=== PATIENT | female | born 1975 | race American Indian/Alaskan Native ===

== ENCOUNTER 2020-12-10 06:32 | Emergency (ER) | payer OTHER ==
[2020-12-10] MEDS ORDERED: PROCHLORPERAZINE MALEATE 10 MG TAB PO NR (07:40)
[2020-12-10] MEDS ORDERED: BUTALB/ACETAMINOPHEN/CAFFEINE TAB PO ONE (07:40)
--- NOTE | 2020-12-10 07:40 | Emergency Department Report ---
ED Headache HPI - General Chief Complaint: Headache Stated Complaint: MIGRAINE Time Seen by Provider: 12/10/20 07:31 Source: patient - History of Present Illness Initial Comments: 45-year-old female with a past medical history of migraines presents to the ER today complaint of right sided headache. Reports that her headache started vertical about a week ago it was initially intermittent but for the past 3 days has been constant. She states that the last time she had a migraine flare was about 2 years ago. She states that headache this past week feels similar to her previous migraines just more intense. Reports mild nausea and some blurry vision and mild tightness to the right posterior neck and right jaw. States that the headache is worse with light and noise. She is unable to say what mikaela es it better. She states that she has tried [id number] Excedrin which typically helps her migraine but it has not helped in the past 3 days. He has also tried Tylenol ibuprofen without much relief of her headache. Denies any head injury. She reports no URI symptoms, fever, chills, focal weakness, numbness, tingling or any other symptoms at this time. Timing/Duration: 1 week Allergies/Adverse Reactions: Allergies latex Allergy (Verified 12/10/20 07:09) Hives Home Medications: Ambulatory Orders Butalb/Acetamin/Caff 50-325-40 [Fioricet 50-325-40] 1 tab PO Q6HR PRN #12 tablet 12/10/20 Promethazine [Phenergan] 25 mg PO Q6HR PRN #15 tab 12/10/20 ED Review of Systems ROS: Stated complaint: MIGRAINE Other details as noted in HPI Comment: All other systems reviewed and negative Constitutional: denies: chills, fever Eyes: denies: eye pain, eye discharge, vision change ENT: denies: ear pain, throat pain Respiratory: denies: cough, shortness of breath, wheezing Cardiovascular: denies: chest pain, palpitations Endocrine: no symptoms reported Gastrointestinal: denies: abdominal pain, nausea, diarrhea Musculoskeletal: other (right sided neck tightness) Neurological: headache. denies: weakness, numbness, paresthesias, confusion Psychiatric: denies: anxiety, depression ED Past Medical Hx - Past Medical History Previous Medical History?: Yes Hx Headaches / Migraines: Yes - Surgical History Past Surgical History?: Yes Additional Surgical History: lipoma removal from rigth side - Medications Home Medications: Home Medications Medication Instructions Recorded Confirmed Last Taken Type Butalb/Acetamin/Caff 50-325-40 1 tab PO Q6HR PRN #12 tablet 12/10/20 Unknown Rx [Fioricet 50-325-40] Promethazine [Phenergan] 25 mg PO Q6HR PRN #15 tab 12/10/20 Unknown Rx ED Physical Exam - General Limitations: No Limitations General appearance: alert, in no apparent distress - Head Head exam: Present: atraumatic, normocephalic, normal inspection - Eye Eye exam: Present: normal appearance, PERRL, EOMI Pupils: Present: normal accommodation - ENT ENT exam: Present: normal exam, normal orophraynx, mucous membranes moist - Neck Neck exam: Present: normal inspection, tenderness (Mild right trapezius/paraspinal muscle ttp. no midline ttp. Full RoM of neck without any limitation or pain. No meningeal signs), full ROM - Respiratory Respiratory exam: Present: normal lung sounds bilaterally. Absent: respiratory distress - Cardiovascular Cardiovascular Exam: Present: regular rate, normal rhythm - GI/Abdominal GI/Abdominal exam: Present: soft. Absent: distended, tenderness - Neurological Exam Neurological exam: Present: alert, oriented X3, CN II-XII intact, normal gait - Psychiatric Psychiatric exam: Present: normal mood - Skin Skin exam: Present: intact ED Course Vital Signs 12/10/20 12/10/20 12/10/20 07:09 08:12 08:26 Temperature 98.9 F Pulse Rate 79 68 Respiratory 18 17 16 Rate Blood Pressure 137/74 134/57 [Left] O2 Sat by Pulse 100 100 Oximetry ED Medical Decision Making - Medical Decision Making The patient presented to the emergency department with a headache. The patient is resting comfortably and, is alert, talkative, interactive and in no distress. The patient appears well, not toxic and well hydrated. The examination is unremarkable and benign. The patient is neurologically intact, has a normal mental status, and is ambulatory in the ER. The history, exam, and the patient's current condition does not suggest meningitis, stroke, sepsis, subarachnoid hemorrhage, intracranial bleeding, encephalitis, temporal arteritis or other significant pathology to warrant further testing, continued ED treatment, admission, neurological consultation or other specialist evaluation at this point. The vital signs have been stable. The patient's condition is stable and appropriate for discharge. The patient will pursue further outpatient evaluation with the primary care physician or other designated or consulting physician as indicated in the discharge instruction. Critical care attestation.: If time is entered above; I have spent that time in minutes in the direct care of this critically ill patient, excluding procedure time. ED Disposition Clinical Impression: Migraine Disposition: DC- TO HOME OR SELFCARE Is pt being admited?: No Does the pt Need Aspirin: No Condition: Stable Instructions: Migraine Headache, Hebo-vo-Kuty Additional Instructions: Take the medications as prescribed. Follow up with PCP listed on your D/C instructions. REturn to ED if symptoms changes or worsens. Prescriptions: Butalb/Acetamin/Caff 50-325-40 [Fioricet 50-325-40] 1 tab PO Q6HR PRN #12 tablet PRN Reason: Headache Promethazine [Phenergan] 25 mg PO Q6HR PRN #15 tab PRN Reason: Nausea Referrals: ALISON SNELL MD [Staff Physician] - 3-5 Days Forms: Work/School Release Form(ED) Time of Disposition: 07:43
[2020-12-10] MEDS ORDERED: PROMETHAZINE 25 MG TAB PO ONE (07:44)
[2020-12-10 08:27] VITALS: BP 134/57
== END 2020-12-10 08:27 | disposition home or self-care (01) ==
LOC: ED 06:32
DX: G43.909 Migraine, unspecified, not intractable, without status migrainosus (principal); Z79.899 Other long term (current) drug therapy; Z88.8 Allergy status to other drugs, medicaments and biological substances
CPT/HCPCS: 99282; Q0164; Q0169

== ENCOUNTER 2021-10-10 12:57 | Outpatient (CLI) | payer BC ==
--- NOTE | 2021-10-10 14:00 | XRay Report ---
RIGHT KNEE 3 VIEW(S) INDICATION / CLINICAL INFORMATION: PAIN IN RIGHT KNEE COMPARISON: None available. FINDINGS: BONES / JOINT(S): No acute fracture or subluxation. No significant arthritis. SOFT TISSUES: No significant abnormality. ADDITIONAL FINDINGS: None. Signer Name: Shayne Adler MD Signed: 10/10/2021 1:55 PM Workstation Name: [id number]
--- NOTE | 2021-10-10 14:20 | XRay Report ---
LUMBOSACRAL SPINE 3 VIEWS INDICATION: BACK PAIN. COMPARISON: None. IMPRESSION: Normal alignment. Mild disc space narrowing and facet arthropathy are identified at L4- 5 and L5-S1. The remaining levels are within normal limits. The SI joints are unremarkable. No acute osseous or soft tissue abnormality. Signer Name: Ameya Mackay Jr, MD Signed: 10/10/2021 2:15 PM Workstation Name: [id number]
== END 2021-10-10 12:58 | disposition home or self-care (01) ==
LOC: XRAY 12:57
PROVIDERS: ATTEND Internal Medicine
DX: M47.817 Spondylosis without myelopathy or radiculopathy, lumbosacral region (principal); M25.561 Pain in right knee; M54.9 Dorsalgia, unspecified
CPT/HCPCS: 72100

== ENCOUNTER 2022-05-18 09:24 | Emergency (ER) | payer BC, OTHER ==
[2022-05-18 09:53] VITALS: BP 132/87
== END 2022-05-18 11:00 | disposition left against medical advice (07) ==
LOC: ED 09:24
DX: R51.9 Headache, unspecified (principal); Z53.21 Procedure and treatment not carried out due to patient leaving prior to being seen by health care provider